=== PATIENT | male | born 1975 | race Caucasian/White ===

== ENCOUNTER 2016-07-21 11:10 | Emergency (ER) | payer OTHER ==
[~2016-07-21] VITALS: Ht 160 cm; Wt 72.6 kg
[2016-07-21 11:23] VITALS: BP 117/72
--- NOTE | 2016-07-21 11:25 | NUR ---
Patient ambulated to bed 2. RN evaluating patient at bedside.
--- NOTE | 2016-07-21 11:40 | NUR ---
PATIENT PRESENTS TO ED WITH LEFT EAR PAIN . PT STATES, LEFT EAR PAIN . DENIES N/V/D; SKIN IS PINK/WARM/DRY; AAOX4 WITH EVEN AND STEADY GAIT; LUNGS CLEAR BL; HR EVEN AND REGULAR; PT DENIES ANY FEVER, CP, SOB, OR COUGH AT THIS TIME; PATIENT STATES PAIN OF 6/10 AT THIS TIME; VSS; PATIENT POSITIONED FOR COMFORT; HOB ELEVATED; BEDRAILS UP X2; BED DOWN. ER MD MADE AWARE OF PT STATUS.
--- NOTE | 2016-07-21 11:46 | NUR ---
Dr. Lopez evaluating patient at bedside.
--- NOTE | 2016-07-21 12:05 | NUR ---
LEFT EAR IRRIGATION COMPLETED. PT ADMITS TOLERATED WITH MINIMAL DISCOMFORT. NO CERUMEN NOTED, NO SANGUINEOUS OR ANY COLORED DRAINAGE----MD NOTIFIED
--- NOTE | 2016-07-21 12:38 | NUR ---
Dr. Lopez re-evaluating patient at bedside.
[2016-07-21 13:19] VITALS: BP 132/78
--- NOTE | 2016-07-21 13:19 | NUR ---
Patient discharged with v/s stable. Written and verbal after care instructions given and explained. Patient verbalized understanding. Ambulatory with steady gait. All questions addressed prior to discharge. Advised to follow up with PMD.
--- NOTE | 2016-07-21 13:19 | NUR ---
Winsome li in [facility] - 07/21/16 at 1327 by [employer] information technology security analyst at bedside.
[2016-07-21] MEDS ORDERED: HYDROGEN PEROXIDE 3% 240 ML BTL TP ONE (13:27)
== END 2016-07-21 13:19 | disposition home or self-care (01) ==
LOC: MED 11:10
DX: H61.23 Impacted cerumen, bilateral (principal); E11.9 Type 2 diabetes mellitus without complications; Z88.0 Allergy status to penicillin

== ENCOUNTER 2017-08-21 16:30 | Emergency (ER) | payer OTHER ==
[~2017-08-21] VITALS: Ht 160 cm; Wt 96.3 kg
[2017-08-21 16:35] VITALS: BP 136/78
--- NOTE | 2017-08-21 16:37 | NUR ---
URINE CUP PROVIDED TO PT FOR URINE SAMPLE; PT AA&OX4 WITH EVEN AND STEADY GAIT; TO LOBBY AWAITING OPEN BED.
--- NOTE | 2017-08-21 17:45 | NUR ---
PT TAKEN TO BED 3.
[2017-08-21] MEDS ORDERED: NACL 0.9% 1,000 ML IV ONE (17:55)
[2017-08-21] MEDS ORDERED: MORPHINE SULFATE 4 MG/ML SYR IVP ONE (17:55)
[2017-08-21 18:22] LABS: HEMATOCRIT 50.9 % (36-52); MEAN CORPUSCULAR HEMOGLOBIN 29 pg (27-31); MEAN CORPUSCULAR HGB CONC 34 g/dL (33-37); MEAN CORPUSCULAR VOLUME 85 fL (80-94); MONOCYTES % (AUTO) 10.9 % (1.7-9.3); NEUTROPHILS % (AUTO) 55.2 % (42.2-75.2); PLATELET COUNT (AUTO) 270 K/uL (140-450); RED BLOOD CELL COUNT(AUTO) 5.98 MIL/uL (4.20-6.10); RED CELL DISTRIBUTION WIDTH 13.8 % (11.6-13.7); WHITE BLOOD COUNT (AUTO) 8.9 K/uL (4.8-10.8)
[2017-08-21 18:23] LABS: BASOPHILS % (AUTO) 0.6 % (0.0-2.0); EOSINOPHILS # (AUTO) 0.2 K/uL (0-0.4); EOSINOPHILS % (AUTO) 2.3 % (0.0-4.0); LYMPHOCYTES # (AUTO) 2.7 K/uL (2.0-11.5); NEUTROPHILS # (AUTO) 4.9 K/uL (1.8-7.7)
[2017-08-21 18:27] LABS: CARBON DIOXIDE 29.7 mmol/L (21-32); CREATININE 1.1 mg/dL (0.7-1.3); POTASSIUM 3.7 mmol/L (3.5-5.1)
[2017-08-21 18:33] LABS: ALBUMIN 4.1 g/dL (3.4-5.0); TOTAL BILIRUBIN 0.7 mg/dL (0.0-1.0)
--- NOTE | 2017-08-21 18:34 | NUR ---
PT REFUSES PAIN MEDICATION AND IV FLUIDS. DR DEVLIN NOTIFIED.
[2017-08-21 19:07] VITALS: BP 128/71
[2017-08-21 19:32] LABS: APPEARANCE,URINE CLEAR (CLEAR); BILIRUBIN,URINE NEGATIVE (NEGATIVE); BLOOD, URINE NEGATIVE (NEGATIVE); COLOR,URINE YELLOW (YELLOW); LEUKOCYTE ESTERASE ,URINE NEGATIVE (NEGATIVE); NITRITE, URINE NEGATIVE (NEGATIVE); PH,URINE 6.5 (5.0-9.0); UGLUCOSE NEGATIVE (NEGATIVE)
== END 2017-08-21 19:07 | disposition home or self-care (01) ==
LOC: MED 16:30
DX: R10.31 Right lower quadrant pain (principal); E11.9 Type 2 diabetes mellitus without complications; Z88.0 Allergy status to penicillin
CPT/HCPCS: 36415; 74176; 80053; 81003; 83690; 85025; 99285; J7030; J2270

== ENCOUNTER 2018-07-31 22:27 | Emergency (ER) | payer OTHER ==
[~2018-07-31] VITALS: Ht 160 cm; Wt 81.6 kg
[2018-07-31 22:33] VITALS: BP 111/76
--- NOTE | 2018-07-31 22:38 | NUR ---
PT AMBULATED TO BED 8 WITH VSS.
--- NOTE | 2018-07-31 22:55 | NUR ---
PT BIB SELF FOR SOB, COUGH, AND SORE THROAT. PT STATES THAT HE HAS TROUBLE SWALLOWING AND DRY COUGH THAT LEAD TO HIM FEELING SOB. PT DENIES SOB AT THIS TIME, O2 SAT AT 98% ON ROOM AIR, RR SYMMETRICAL AND NON LABORED, BREATH SOUNDS IN LOWER LOBES DEMINISHED. PT REPORTS PAIN AT 10/10 WHEN HE SWALLOWS OR COUGHS. ER MD TO SEE PT. HOB ELEVATED, SIDE RAIL UP X1, AND BED IN LOWEST POSITION.
[2018-08-01 00:06] VITALS: BP 120/77
--- NOTE | 2018-08-01 00:06 | NUR ---
Patient discharged with v/s stable. Written and verbal after care instructions given and explained. Patient alert, oriented and verbalized understanding of instructions. Ambulatory with steady gait. All questions addressed prior to discharge. ID band removed. Patient advised to follow up with PMD. Rx of CODEINE/PROMETHAZINE AND ALBUTEROL given. Patient educated on indication of medication including possible reaction and side effects. Opportunity to ask questions provided and answered.
== END 2018-08-01 00:06 | disposition home or self-care (01) ==
LOC: MED 22:27
DX: R05 Cough (principal); R06.02 Shortness of breath; R09.89 Other specified symptoms and signs involving the circulatory and respiratory systems; E11.9 Type 2 diabetes mellitus without complications; Z88.0 Allergy status to penicillin
CPT/HCPCS: 71045; 99283; Q0092

== ENCOUNTER 2018-10-14 13:43 | Emergency (ER) | payer OTHER ==
[~2018-10-14] VITALS: Ht 160 cm; Wt 90.7 kg
[2018-10-14 13:48] VITALS: BP 118/59
--- NOTE | 2018-10-14 13:58 | NUR ---
Patient taken from ED lobby to XRAY via wheelchair by tech.
--- NOTE | 2018-10-14 13:59 | NUR ---
Winsome li in ED - 10/14/18 at 1359 by [email or web address] PT TAKEN TO X RAY VIA W/C. ACCOMPANIED BY HEEL STIFFENER.
--- NOTE | 2018-10-14 14:11 | NUR ---
PT RETURNED FROM X RAY VIA W/C, ACCOMPANIED BY ECOLOGICAL RISK ASSESSOR. WAIT IN LOBBY. VSS.
--- NOTE | 2018-10-14 14:56 | NUR ---
PT TAKEN TO BED 6 BY WHEELCHAIR.
--- NOTE | 2018-10-14 15:07 | NUR ---
C/O LEFT FOOT SWOLLEN & BURNING PAIN S/P TRANSMITION LANDED ON HIS LEFT FOOT X TODAY. DENIES LOC, N/V, OR OTHER INJURIES MED HX: DENIES
[2018-10-14] MEDS ORDERED: ACETAMINOPHEN 325 MG TAB PO ONE (15:15)
--- NOTE | 2018-10-14 15:39 | NUR ---
PLACED A SHORT LEG POSTERIOR SPLINT ON PT'S LEFT FOOT, SECURED USING AN REED WRAP. ALSO FITTED THE PT WITH CRUTCHES WELL AN ORTHO SHOE.
[2018-10-14 15:42] VITALS: BP 124/69
--- NOTE | 2018-10-14 15:44 | NUR ---
Patient discharged with v/s stable. Written and verbal after care instructions given and explained. Patient verbalized understanding. Pt educated on use of crutches, taken out to his ride in wheelchair. All questions addressed prior to discharge. Advised to follow up with pmd, referral and cd given.
== END 2018-10-14 15:44 | disposition home or self-care (01) ==
LOC: MED 13:43
DX: S92.422A Displaced fracture of distal phalanx of left great toe, initial encounter for closed fracture (principal); E11.9 Type 2 diabetes mellitus without complications; Z88.0 Allergy status to penicillin; W20.8XXA Other cause of strike by thrown, projected or falling object, initial encounter; Y93.89 Activity, other specified; Y92.89 Other specified places as the place of occurrence of the external cause; Y99.8 Other external cause status
CPT/HCPCS: 29515; 73630; 99283

== ENCOUNTER 2018-10-16 12:32 | Emergency (ER) | payer OTHER ==
[~2018-10-16] VITALS: Ht 160 cm; Wt 99.8 kg
[2018-10-16 12:49] VITALS: BP 121/77
--- NOTE | 2018-10-16 13:41 | NUR ---
PT WAS TAKEN TO BED 10 BY WHEELCHAIR.
--- NOTE | 2018-10-16 13:47 | NUR ---
C/O LT 1ST TOE PAIN X3 DAYS. PT WAS SEEN AT [facility] ED ON 10/14 AND REPORTS THAT TOE WAS BROKEN. REPORTS THROBING PAIN AT 8/10 IN TOE THAT RADIATES TO LEIGH. REPORTS NUMBNESS IN TOE, REDNESS, BRUISING, AND SWELLING VISIBLE IN TOE. TOE IS COOL TO TOUCH. HE FOLLOWED UP WITH PCP WHO WAS UNABLE TO DO ANYTHING BECAUSE PT NEEDS X-RAY REPORT. DENIES N/V/D; SKIN IS PINK/WARM/DRY; AAOX4 ,AMBULATE WITH CRUTCHES. LUNGS CLEAR BL; HR EVEN AND REGULAR; PT DENIES ANY FEVER, CP, SOB, OR COUGH AT THIS TIME; VSS; PATIENT POSITIONED FOR COMFORT; HOB ELEVATED; BEDRAILS UP X2; BED DOWN. ER MD MADE AWARE OF PT STATUS.
[2018-10-16 14:36] VITALS: BP 121/77
--- NOTE | 2018-10-16 14:37 | NUR ---
Patient discharged with v/s stable. Written and verbal after care instructions given and explained. Patient alert, oriented and verbalized understanding of instructions. Ambulatory with CRUTCHES. All questions addressed prior to discharge. ID band removed. Patient advised to follow up with PMD. Rx of TRAMADOL given. Patient educated on indication of medication including possible reaction and side effects. Opportunity to ask questions provided and answered.
== END 2018-10-16 14:37 | disposition home or self-care (01) ==
LOC: MED 12:32
DX: S92.512A Displaced fracture of proximal phalanx of left lesser toe(s), initial encounter for closed fracture (principal); Z88.0 Allergy status to penicillin; X58.XXXA Exposure to other specified factors, initial encounter; Y93.89 Activity, other specified; Y92.89 Other specified places as the place of occurrence of the external cause; Y99.8 Other external cause status
CPT/HCPCS: 99283

== ENCOUNTER 2019-07-14 18:53 | Emergency (ER) | payer OTHER ==
[~2019-07-14] VITALS: Ht 160 cm; Wt 95.3 kg
[2019-07-14 19:06] VITALS: BP 123/77
--- NOTE | 2019-07-14 19:24 | NUR ---
PT BIB SELF C/O SORE THROAT X 1 WEEK. PT REPORTS ACHY PAIN AT 7/10, INCREASES WHEN SWALLOWING AND SNEEZING + SWOLLEN TONSILS WIHT ERYTHEMA. AIRWAY PATENT, VOICE CLEAR, NO EXCESS SALIVA, RR EVEN AND NON-LABORED, BREATH SOUNDS CLEAR THROUGHOUT, MOIST MUCUS MEMBRANES. VSS. PMH:DM
--- NOTE | 2019-07-14 19:33 | NUR ---
ARPIT LION AT CHAIRSIDE
[2019-07-14 19:50] VITALS: BP 120/70
--- NOTE | 2019-07-14 19:50 | NUR ---
Patient discharged with v/s stable. Written and verbal after care instructions given and explained. Patient alert, oriented and verbalized understanding of instructions. Ambulatory with steady gait. All questions addressed prior to discharge. ID band removed. Patient advised to follow up with PMD. Rx of IBUPROFEN AND CEPACOL SORE THROAT AND COUGH given. Patient educated on indication of medication including possible reaction and side effects. Opportunity to ask questions provided and answered.
== END 2019-07-14 19:50 | disposition home or self-care (01) ==
LOC: MED 18:53
DX: J02.9 Acute pharyngitis, unspecified (principal); E11.9 Type 2 diabetes mellitus without complications; Z88.0 Allergy status to penicillin
CPT/HCPCS: 99282

== ENCOUNTER 2019-11-08 17:12 | Emergency (ER) | payer OTHER, SELFPAY ==
[~2019-11-08] VITALS: Ht 172.7 cm; Wt 89.8 kg
[2019-11-08 17:21] VITALS: BP 135/62
--- NOTE | 2019-11-08 17:28 | NUR ---
AMBULATED TO BED 2
--- NOTE | 2019-11-08 17:31 | NUR ---
RECHECKED ORAL TEMP 98.1. NOTIFIED DR. DEVLIN.
--- NOTE | 2019-11-08 17:44 | NUR ---
DR. DEVLIN EVALUATING PT AT BEDSIDE
--- NOTE | 2019-11-08 17:54 | NUR ---
FLU AND COVID SWABS OBTAINED AND WALKED TO LAB.
--- NOTE | 2019-11-08 17:55 | NUR ---
44/M C/O SUBJ FEVER/CHILLS X1 WEEK AND PRODUCTIVE COUGH X 2 DAYS. PT DENIES ANY CHEST PAIN/SOB. C/O BACK PAIN STARTING AT LOW BACK X 8 DAYS. DENIES ANY RECENT INJURY AND STATES HE LIFTS HEAVY OBJECTS AT WORK BUT DOES NOT FEEL THAT IS WHATS CAUSING THE PAIN HE HAS NOT BEEN WORKING FOR THE LAST 3 MONTHS. ALSO STATES SEPARATE MSK PAIN AT UPPER BACK AND RIGHT ARM. DENIES ANY DYSURIA OR ANY CHANGES TO BLADDER FUNCTION. DENIES N/V. PT STATES THAT HE STARTED TAKING ANTIBIOTICS HIS DAD GAVE HIM LAST WEEK AND BELIEVES THEYVE BEEN HELPING BUT RAN OUT. CANNOT RECALL WHAT ANTIBIOTICS THEY WERE. DENIES SICK CONTACT. NO PMH NKA
--- NOTE | 2019-11-08 17:56 | NUR ---
PT GIVEN URINAL AND IS AWARE OF NEED FOR URINE SAMPLE; WILL TRY TO PROVIDE SAMPLE LATER.
--- NOTE | 2019-11-08 17:58 | NUR ---
LICENSED MARRIAGE AND FAMILY THERAPIST MADE AWARE OF NEED TO DRAW LABS.
[2019-11-08] MEDS: KETOROLAC 30 MG/ML VIAL IM ONE ×2 (18:07→18:28)
--- NOTE | 2019-11-08 18:08 | NUR ---
PT REFUSED TORADOL IM DUE TO FEAR OF INJECTIONS. Addendum: 11/08/[address] DEVLIN MADE AWARE
--- NOTE | 2019-11-08 18:15 | NUR ---
CXR AT BEDSIDE
--- NOTE | 2019-11-08 18:16 | NUR ---
LAB STATES THEY WILL COME DRAW PT
--- NOTE | 2019-11-08 18:17 | NUR ---
OIL SPRAYING MACHINE OPERATOR AT BEDSIDE FOR BLOOD DRAW
--- NOTE | 2019-11-08 18:27 | NUR ---
URINE SAMPLE HANDED TO CAM MAKER
[2019-11-08 18:38] LABS: BASOPHILS # (AUTO) 0.1 K/uL (0.00-0.22); EOSINOPHILS % (AUTO) 0.6 % (0.0-4.0); HEMOGLOBIN 16.6 g/dL (12.0-18.0); LYMPHOCYTES # (AUTO) 1.6 K/uL (2.0-11.5); LYMPHOCYTES % (AUTO) 25.1 % (20.5-51.1); MEAN CORPUSCULAR HEMOGLOBIN 28 pg (27-31); MEAN CORPUSCULAR HGB CONC 33 g/dL (33-37); MEAN CORPUSCULAR VOLUME 85.4 fL (80-94); MONOCYTES # (AUTO) 0.8 K/uL (0.8-1.0); MONOCYTES % (AUTO) 11.8 % (1.7-9.3); NEUTROPHILS % (AUTO) 61.5 % (42.2-75.2); PLATELET COUNT (AUTO) 219 K/uL (140-450); RED BLOOD CELL COUNT(AUTO) 5.85 MIL/uL (4.20-6.10); RED CELL DISTRIBUTION WIDTH 14.2 % (11.6-13.7); WHITE BLOOD COUNT (AUTO) 6.6 K/uL (4.8-10.8)
[2019-11-08 18:41] LABS: APPEARANCE,URINE CLEAR (CLEAR); BILIRUBIN,URINE NEGATIVE (NEGATIVE); BLOOD, URINE NEGATIVE (NEGATIVE); COLOR,URINE YELLOW (YELLOW); LEUKOCYTE ESTERASE ,URINE NEGATIVE (NEGATIVE); NITRITE, URINE NEGATIVE (NEGATIVE); UGLUCOSE NEGATIVE (NEGATIVE)
[2019-11-08 18:50] LABS: ALBUMIN 3.8 g/dL (3.4-5.0); ANION GAP 11.9 (8-16); CARBON DIOXIDE 28.3 mmol/L (21-32); CREATININE 1.2 mg/dL (0.6-1.3); POTASSIUM 4.2 mmol/L (3.5-5.1); TOTAL BILIRUBIN 0.6 mg/dL (0.0-1.0)
--- NOTE | 2019-11-08 19:13 | NUR ---
Patient discharged with v/s stable. Written and verbal after care instructions given and explained. Patient alert, oriented and verbalized understanding of instructions. Ambulatory with steady gait. All questions addressed prior to discharge. ID band removed. Patient advised to follow up with PMD. Rx of IBUPROFEN, PROMETHAZINE given. Patient educated on indication of medication including possible reaction and side effects. Opportunity to ask questions provided and answered.
[2019-11-08 19:14] VITALS: BP 135/69
== END 2019-11-08 19:13 | disposition home or self-care (01) ==
LOC: MED 17:12 → EEVIPCON 17:12 → MED 19:13
DX: R50.9 Fever, unspecified (principal); R05 Cough; R06.02 Shortness of breath; Z88.0 Allergy status to penicillin; E11.9 Type 2 diabetes mellitus without complications; Z20.828 Contact with and (suspected) exposure to other viral communicable diseases
CPT/HCPCS: 36415; 71045; 80053; 81003; 85025; 87804; 99284; C9803; Q0092; U0003; J1885

== ENCOUNTER 2020-08-20 02:33 | Emergency (ER) | payer OTHER, SELFPAY ==
[~2020-08-20] VITALS: Ht 160 cm; Wt 90.7 kg
[2020-08-20 02:36] VITALS: BP 134/83
--- NOTE | 2020-08-20 02:36 | NUR ---
TO BED AMBULATORY
--- NOTE | 2020-08-20 02:42 | NUR ---
C/O EAR DISCOMFORT X 4 DAYS. PT SAYS HES HAD A DECREASED IN HEARING ON BOTH EARS. RT EAR; CANT HEAR ANYTHING. PER PT EVERYTHING SOUNDS MUFFLED ON BOTH EARS. +CERUMEN ON BOTH EARS. +DIZZINESS WHEN WALKING BUT HAS A STEADY GAIT. DENIES ANY TRUAMA OR INJURY TO THE EARS. ALSO DENIES N, V, DESAI, FEVERS, CHILLS, OR PAIN. PT ALSO SAYS ON HIS RT EAR HE HEARS MORE PULSATING OF HIS HEART. VSS. A&OX4. PT HAS BEEN USING OTC ANTIBIOTIC EARDROPS WITH NO RELIEF. NO DISCHARGE NOTED. NO OBVIOUS DEFORMITIES NOTED. NKDA. PMH: DENIES.
--- NOTE | 2020-08-20 02:42 | NUR ---
Dr. Wilkinson examining patient.
--- NOTE | 2020-08-20 02:46 | NUR ---
DERRELL, EMT AT BESIDE DOING EAR IRRIGATION PROCEDURE.
[2020-08-20] MEDS: CARBAMIDE PEROXIDE 6.5% OT 15 ML BTL OT ONE (03:28)
[2020-08-20] MEDS ORDERED: CARB15DR61 OT (04:51)
[2020-08-20 04:58] VITALS: BP 134/76
--- NOTE | 2020-08-20 04:58 | NUR ---
Patient discharged with v/s stable. Written and verbal after care instructions given and explained. Patient alert, oriented and verbalized understanding of instructions. Ambulatory with steady gait. All questions addressed prior to discharge. ID band removed. Patient advised to follow up with PMD. Rx of DEBROX given. Patient educated on indication of medication including possible reaction and side effects. Opportunity to ask questions provided and answered.
== END 2020-08-20 04:58 | disposition home or self-care (01) ==
LOC: MED 02:33
DX: H61.23 Impacted cerumen, bilateral (principal); Z88.0 Allergy status to penicillin
CPT/HCPCS: 99282

== ENCOUNTER 2021-11-11 15:35 | Emergency (ER) | payer OTHER ==
[~2021-11-11] VITALS: Ht 160 cm; Wt 99.8 kg
[~2021-11-11 15:35] MED LIST: CARB15DR61 OT
[2021-11-11 15:41] VITALS: BP 115/72
--- NOTE | 2021-11-11 15:45 | NUR ---
PT AMB TO BED 1.
--- NOTE | 2021-11-11 16:11 | NUR ---
46 y/o male bib self with c/o sore throat and left ear pain. Patient has 10/10 pain level when swallowing. Denies SOB. denies being around anyone who is sick. Medical History: Denies ALLERGY: PENICILLIN
--- NOTE | 2021-11-11 16:57 | NUR ---
ARPIT HAQ AT BEDSIDE EVALUATING PATIENT AT BEDSIDE.
[2021-11-11] MEDS ORDERED: CLIN300C52 PO (16:59)
[2021-11-11] MEDS ORDERED: KETOROLAC 60 MG/2 ML VIAL IM ONE (17:00)
[2021-11-11] MEDS ORDERED: PHEN177S23 PO (17:01)
[2021-11-11] MEDS ORDERED: PRED20TA5 PO (17:01)
[2021-11-11] MEDS ORDERED: IBUPROFEN 800 MG TAB PO ONE (17:10)
--- NOTE | 2021-11-11 17:47 | NUR ---
Patient discharged with v/s stable. Written and verbal after care instructions given. Patient alert, oriented and verbalized understanding of instructions. Ambulatory with steady gait. All questions addressed prior to discharge. ID band removed. Patient advised to follow up with PMD. Rx of CLINDAMYCIN, PHENOL AND PREDNISONE given. Opportunity to ask questions provided and answered.
--- NOTE | 2021-11-11 18:23 | NUR ---
The patient's care was reviewed and supervised by ED Agency Nurse 7, RN, RN.
== END 2021-11-11 17:47 | disposition home or self-care (01) ==
LOC: MED 15:35
DX: J02.9 Acute pharyngitis, unspecified (principal); H92.02 Otalgia, left ear; R59.0 Localized enlarged lymph nodes; E11.9 Type 2 diabetes mellitus without complications; Z79.899 Other long term (current) drug therapy; Z79.2 Long term (current) use of antibiotics; Z88.0 Allergy status to penicillin
CPT/HCPCS: 99283; J1885

== ENCOUNTER 2022-03-06 19:11 | Emergency (ER) | payer OTHER ==
[~2022-03-06] VITALS: Ht 160 cm; Wt 101.7 kg
[~2022-03-06 19:11] MED LIST changes: +CLIN300C52 PO; +PHEN177S23 PO; +PRED20TA5 PO
[2022-03-06 19:40] VITALS: BP 130/73
--- NOTE | 2022-03-06 19:43 | NUR ---
PT TO LOBBY
--- NOTE | 2022-03-06 20:14 | NUR ---
Patient discharged with v/s stable. Written and verbal after care instructions given and explained. Pt provided with ENT referral for hemangioma.Patient verbalized understanding. Ambulatory with steady gait. All questions addressed prior to discharge. Advised to follow up with PMD.
== END 2022-03-06 20:14 | disposition home or self-care (01) ==
LOC: MED 19:11
DX: K13.79 Other lesions of oral mucosa (principal); R03.0 Elevated blood-pressure reading, without diagnosis of hypertension; E11.9 Type 2 diabetes mellitus without complications; Z79.899 Other long term (current) drug therapy; Z88.0 Allergy status to penicillin
CPT/HCPCS: 99281